=== PATIENT | female | born 1990 | race Caucasian/White ===

== ENCOUNTER 2018-12-16 16:07 | Inpatient (IN) | payer SELFPAY ==
[2018-12-16] MEDS ORDERED: SODIUM CHLORIDE 0.9% 1000ML 1,000 ML IVS ONE ×4 (16:36→21:32)
[2018-12-16] MEDS ORDERED: SODIUM CHLORIDE 0.9% (FLUSH) 10 ML SYG IV PRN ×2 (16:36→21:34)
[2018-12-16] MEDS ORDERED: ONDANSETRON INJ 4 MG/2 ML VIAL IV ONE (17:23)
[2018-12-16] MEDS ORDERED: POTASSIUM CHLORIDE 20mEq 10ML VIAL IVPB ONE (17:39)
[2018-12-16] MEDS ORDERED: KCL 20MEQ/WATER FOR INJ 100ML 20 MEQ in PREMIX BAG 1 BAG IVPB ONE (17:53)
[2018-12-16] MEDS ORDERED: KCL 20MEQ/WATER FOR INJ 100ML 100 ML IVPB ONE (17:55)
--- NOTE | 2018-12-16 17:57 | CT ---
EXAM DESCRIPTION: Abdomen/Pelvis w/Contrast CLINICAL HISTORY: 28 years Female, DIFFUSE ABD TENDERNESS COMPARISON: None. TECHNIQUE: Transaxial images were obtained with intravenous contrast medium without oral contrast media. Sagittal and coronal reconstruction was performed.This exam was performed according to our departmental dose-optimization program, which includes automated exposure control, adjustment of the mA and/or kV according to patient size and/or use of iterative reconstruction technique. FINDINGS: The lung bases are clear. The liver and spleen are unremarkable. No biliary ductal dilatation is observed. The gallbladder is normal in appearance. No adrenal masses are detected. The pancreas is normal in appearance. Imaging of the kidneys reveals no evidence of hydronephrosis mass cyst or calcification. The appendix is identified and is normal in appearance. No free fluid is observed. No inguinal region abnormality is seen. The uterus and adnexa are unremarkable. No bone abnormality is seen. IMPRESSION: Normal computerized axial tomography of the abdomen and pelvis. Electronically signed by: Marlo Adorno MD 12/16/2018 5:56 PM CDT
--- NOTE | 2018-12-16 18:24 | ED.PDOC ---
History of Present Illness - General Chief Complaint: Abdominal Pain Stated Complaint: abdominal pain,vomiting Time Seen by Provider: 12/16/18 16:28 Information Source: patient, family Exam Limitations: no limitations - History of Present Illness Initial Comments: PT PRESENTS TO THE ED WITH COMPLAINT OF NAUSEA, VOMITING, AND ABDOMINAL PAIN FOR THE PAST 2 WEEKS. PT STATES SHE HAS ONLY BEEN ABLE TO TOLERATE SMALL AMMOUNTS OF LIQUIDS. PT STATES THAT HER ABDOMINAL PAIN IS INTERMITTENT AND DIFFUSE. PT REPORTS HISTORY OF HEAVY ETOH USE BUT STATES SHE HAS NOT BEEN ABLE TO DRINK ALCOHOL FOR THE PAST 2 WEEKS DUE TO VOMITING. Abdominal Pain Onset Location: generalized abdomen Quality: intermittent Improving Factors: nothing Worsening Factors: nothing Associated Symptoms: nausea/vomiting Review of Systems - Review of Systems Constitutional: Denies: chills, fever EENTM: Denies: nose congestion, throat pain Respiratory: Denies: cough, short of breath Cardiology: Denies: chest pain, palpitations Gastrointestinal/Abdominal: States: abdominal pain, nausea, vomiting Genitourinary: Denies: dysuria, frequency Musculoskeletal: Denies: joint swelling, muscle pain Skin: Denies: dryness, lesions Neurological: Denies: headache, numbness Endocrine: States: no symptoms reported Hematologic/Lymphatic: States: no symptoms reported Past Medical History (General) - Patient Medical History Hx Stroke: No Hx Congestive Heart Failure: No Hx Diabetes: No Surgical History: no surgical history - Vaccination History Hx Influenza Vaccination: No - Social History Hx Tobacco Use: Yes Hx Alcohol Use: Yes - Female History Patient is a Female of Child Bearing Age (10 -59 yrs old): Yes Family Medical History - Family History Mother Family History: Unknown Living Status: Unknown Physical Exam - Physical Exam General Appearance: Alert, No apparent distress, Well Developed, Well Groomed, Other - DRY MUCOUS MEMBRANES Eyes, Ears, Nose, Throat Exam: PERRL/EOMI Neck: full range of motion, supple Respiratory: lungs clear, normal breath sounds, no respiratory distress Cardiovascular/Chest: no murmur, tachycardia Gastrointestinal/Abdominal: soft, tenderness - DIFFUSE Extremity: non-tender, normal inspection, no pedal edema Neurologic: alert, normal mood/affect, oriented x 3 Skin Exam: normal color, warm/dry Progress - Progress Progress: 12/16/18 18:26 PT REPORTS SIGNIFICANT IMPROVEMENT IN SYMPTOMS AFTER ZOFRAN AND FLUIDS. HR NOW 93 WITH SBP OF 114. LABS AND DIAGNOSTICS DISCUSSED. - Results/Orders Results/Orders: Laboratory Tests 12/16/18 12/16/18 12/16/18 16:40 16:40 16:40 WBC 17.2 H RBC 4.10 L Hgb 16.5 H Hct 45.8 MCV 111.8 H MCH 40.3 H MCHC 36.1 RDW 14.5 Plt Count 330 MPV 8.1 Absolute Neuts (auto) 14.00 H Absolute Lymphs (auto) 1.50 Absolute Monos (auto) 1.70 H Absolute Eos (auto) 0.10 Absolute Basos (auto) 0.00 Neutrophils % 81.2 H Lymphocytes % 8.5 L Monocytes % 9.7 H Eosinophils % 0.3 L Basophils % 0.3 Normal RBC Morphology Stain quality accept Sodium 130 L Potassium 2.8 L Chloride 87 L Carbon Dioxide 20 L Anion Gap 25.8 H BUN 22 H Creatinine 0.77 BUN/Creatinine Ratio 28.6 H Random Glucose 113 H Serum Osmolality 264.9 L Calcium 10.9 H Total Bilirubin 3.3 H* Direct Bilirubin 0.8 H Indirect Bilirubin 2.5 H AST 60 H ALT 77 H Alkaline Phosphatase 87 Serum Total Protein 9.1 H Albumin 4.8 Amylase 87 Lipase 70 H Serum HCG, Qual Ethyl Alcohol < 5.40 12/16/18 16:40 WBC RBC Hgb Hct MCV MCH MCHC RDW Plt Count MPV Absolute Neuts (auto) Absolute Lymphs (auto) Absolute Monos (auto) Absolute Eos (auto) Absolute Basos (auto) Neutrophils % Lymphocytes % Monocytes % Eosinophils % Basophils % Normal RBC Morphology Sodium Potassium Chloride Carbon Dioxide Anion Gap BUN Creatinine BUN/Creatinine Ratio Random Glucose Serum Osmolality Calcium Total Bilirubin Direct Bilirubin Indirect Bilirubin AST ALT Alkaline Phosphatase Serum Total Protein Albumin Amylase Lipase Serum HCG, Qual Negative Ethyl Alcohol - EKG/XRAY/CT EKG: Sinus, Tachy - @118, NL INTERVALS, NL AXIS, GOOD R WAVE PROGRESSION, no ST T wave changes - NO OLD EKG FOR COMPARISON Departure - Departure Clinical Impression: Dehydration, Hypokalemia, Hyponatremia, History of alcoholism Nausea and vomiting Qualifiers: Vomiting type: unspecified Vomiting Intractability: non-intractable Qualified Code(s): R11.2 - Nausea with vomiting, unspecified Abdominal pain Qualifiers: Abdominal location: generalized Qualified Code(s): R10.84 - Generalized abdominal pain Time of Disposition: 18:28 Disposition: Admit Patient Condition: Fair Departure Forms: ED Discharge - Pt. Copy, Patient Portal Self Enrollment Home Medications: Ambulatory Orders NK 12/16/18
--- NOTE | 2018-12-16 21:12 | HP ---
SUPERVISING PHYSICIAN: Fany Luque MD CHIEF COMPLAINT: Abdominal pain with nausea and vomiting. HISTORY OF PRESENT ILLNESS: This is a 28-year-old female patient who presented to the Emergency Room due to two weeks of intermittent diffuse abdominal pain. She is an admitted heavy alcohol user and she quit drinking alcoholic beverages about two weeks ago and since then, she has had severe nausea and vomiting with dry heaves. She also has had an increase in her gastroesophageal reflux disease symptoms. In the Emergency Room, she was given some Zofran as well as several liters of fluids. Her initial vital signs showed temperature 98, heart rate 146, blood pressure 107/85, respiratory rate 16, O2 saturation 99. After her fluids, her heart rate came down to 98. Laboratory was drawn and showed WBCs 17,200, hemoglobin 16.5, hematocrit 45.8. She has a left shift on her differential. Sodium 130, potassium 2.8, chloride 87, carbon dioxide 20, BUN 22, creatinine 0.77. Glucose 113, serum osmolality 264.9, calcium 10.9, total bilirubin 3.3, direct bilirubin 0.8, indirect bilirubin 2.5, AST 60, ALT 77, amylase 87, lipase 70. Serum HCG was negative. Urinalysis was unremarkable. Urine drug screen was negative for ethyl alcohol with less than 5.4. CT of her abdomen was done and shows normal computerized axial tomography of the abdomen and pelvis. In addition to the fluid in the Emergency Room, she was given some potassium supplementation and I was called for hospital admission. PAST MEDICAL HISTORY: 1. Chronic insomnia. 2. Gastroesophageal reflux disease. PAST SURGICAL HISTORY: 1. ORIF of the arm when she was a child after a break. OUTPATIENT MEDICATIONS: 1. Benadryl for sleep. ALLERGIES: NO KNOWN DRUG ALLERGIES. SOCIAL HISTORY: She lives at home with her significant other. She has one child. She smokes approximately 7 to 8 cigarettes per day. She drinks one to two bottles of vodka weekly. She denies any illicit drug use. REVIEW OF SYSTEMS: GENERAL: Positive for chills. Negative for fever or weight changes. HEENT: Negative for sinus symptoms, ear pain, vision changes or sore throat. RESPIRATORY: Negative for wheezing, coughing or shortness of breath. CARDIAC: Negative for chest pain, palpitations or tachycardia. GASTROINTESTINAL: As per history of present illness. GENITOURINARY: Negative for hematuria, dysuria or polyuria. MUSCULOSKELETAL: Negative for arthralgias, myalgias. SKIN: Negative for lesions or rashes. NEUROLOGIC: Negative for headache, weakness or seizures. PHYSICAL EXAMINATION: VITAL SIGNS: Temperature 97.8. Heart rate 90. Blood pressure 105/70. Respiratory rate 18. O2 100% on room air. GENERAL: This is a 28-year-old female patient who looks to be moderately ill lying in her hospital bed. HEENT: Normocephalic, atraumatic. Pupils are equal and reactive. Oropharynx is clear. NECK: Supple without mass. RESPIRATORY: Essentially clear to auscultation bilaterally. CHEST: There is equal rise and fall of the chest with inspiration and expiration. CARDIOVASCULAR: Regular rate and rhythm. At times, she is tachycardic. GASTROINTESTINAL: Abdomen is soft. She has diffuse tenderness throughout. No rebound tenderness or guarding. Bowel sounds are positive. EXTREMITIES: No cyanosis, clubbing or edema. NEUROLOGIC: Awake, alert and oriented times three. SKIN: Warm and dry. No rashes or lesions noted. LABORATORY: Labs and films are as per history of present illness. IMPRESSION: 1. Severe dehydration with nausea and vomiting secondary to ETOH withdrawal. 2. Severe electrolyte imbalance secondary to #1. 3. Elevated liver function tests secondary to alcohol abuse. 4. Gastroesophageal reflux disease. 5. ETOH abuse. 6. Chronic insomnia. PLAN: I have admitted the patient to the hospital. She will be aggressively rehydrated with fluids. I have given her Phenergan and Zofran as antiemetics for nausea. I will recheck her labs in the morning. I have also given her a proton pump inhibitor for ulcer prophylaxis. In addition to that, I have given her Maalox as needed as well as Zantac. She will be NPO except for medications overnight in case there is some testing that needs to be done in the morning. I have also consulted Director Of Officiating for faye care as well as possible help with her ETOH addiction. I ordered some Ativan both for sleep and in case there are some delirium tremens, although that is most likely remote as she has not had an alcoholic beverage in two weeks. I ordered aggressive pulmonary hygiene. We will continue to monitor the patient closely and follow as needed. #[id number] [facility]
[2018-12-16] MEDS ORDERED: ONDANSETRON INJ 4 MG/2 ML VIAL IV PRN (21:33)
[2018-12-16] MEDS ORDERED: PROMETHAZINE HCL INJ 25 MG in SODIUM CHLORIDE 0.9% 50ML 50 ML IVPB PRN (21:33)
[2018-12-16] MEDS ORDERED: ACETAMINOPHEN 325 MG TAB PO PRN (21:34)
[2018-12-16] MEDS ORDERED: IV SET AND CAP CHANGE INJ INJ SCH (22:00)
[2018-12-16] MEDS: KCL 20MEQ/D5NS 1,000 ML IVS PRN (22:15)
[2018-12-16] MEDS ORDERED: SODIUM CHLORIDE 0.9% 50ML 50 ML ONE ×2 (22:17→23:02)
[2018-12-16] MEDS ORDERED: PROMETHAZINE HCL INJ 25 MG/ML VIAL ONE (22:17)
[2018-12-16] MEDS ORDERED: raNITIdine HCL INJ 25 MG/ML VIAL ONE (23:02)
[2018-12-16] MEDS: ALUMINUM & MAGNESIUM HYDROXIDE 30 ML UD PO PRN (23:03)
[2018-12-16] MEDS: raNITIdine HCL INJ 50 MG in SODIUM CHLORIDE 0.9% 50ML 50 ML IVPB SCH (23:04)
[2018-12-17] MEDS ORDERED: SODIUM CHLORIDE 0.9% 50ML 50 ML ONE ×4 (05:06→19:25)
[2018-12-17] MEDS ORDERED: raNITIdine HCL INJ 25 MG/ML VIAL ONE ×4 (05:06→19:25)
[2018-12-17] MEDS: raNITIdine HCL INJ 50 MG in SODIUM CHLORIDE 0.9% 50ML 50 ML IVPB SCH ×3 (06:15→22:34)
[2018-12-17] MEDS: KCL 20MEQ/D5NS 1,000 ML IVS PRN ×3 (07:54→23:59)
[2018-12-17] MEDS ORDERED: POTASSIUM CHLORIDE 20 MEQ TAB PO ONE (09:17)
[2018-12-17] MEDS ORDERED: POTASSIUM CHLORIDE 10 MEQ TAB PO ONE (10:20)
[2018-12-17] MEDS: SODIUM CHLORIDE 0.9% (FLUSH) 10 ML SYG IV SCH ×2 (13:16→20:23)
[2018-12-17] MEDS ORDERED: ALUM & MAG HYDROX-SIMETHICONE 30 ML, LIDOCAINE VISCOUS 2% 15 ML PO ONE ×2 (13:19)
[2018-12-17] MEDS ORDERED: LIDOCAINE HCL 2% (MOUTH-THROAT) 15 ML UD ONE (13:46)
[2018-12-17] MEDS: ALUMINUM & MAGNESIUM HYDROXIDE 30 ML UD PO PRN (13:55)
[2018-12-17] MEDS: SUCRALFATE 1 GM TAB PO SCH ×2 (16:16→20:23)
[2018-12-17] MEDS: ENOXAPARIN SODIUM 40 MG/0.4 ML SYG SUBCU SCH (20:23)
--- NOTE | 2018-12-17 22:40 | PN ---
DATE: 12/17/18 SUPERVISING PHYSICIAN: Tomas Luque M.D. SUBJECTIVE: The patient has had a little bit of heartburn which resolved with a GI cocktail. I did discuss with her again at length her need to stop drinking. She has had a little bit of nausea with her medication this morning, otherwise she has started to tolerate oral intake. OBJECTIVE: VITAL SIGNS: Temperature 98.3, pulse 94, blood pressure 103/70, respirations 16, satting 100% on room air. GENERAL: The patient is resting comfortably. Appears to be in no acute distress. CHEST: Lungs are clear to auscultation. HEART: Regular rate and rhythm. ABDOMEN: Soft, non-tender. Positive bowel sounds. EXTREMITIES: Without any edema. NEUROLOGIC: She is alert and oriented times three. LABORATORY: White count now has normalized to 5,900, hemoglobin 11.6, hematocrit 32.1 with an MCV of 112 and MCH of 40.4, platelet count 181,000. Differential shows to be without a left shift today. Chemistries show sodium 137, potassium is still low at 2.6, BUN 8, creatinine 0.52, magnesium 1.4, bilirubin went from 3.3 to 1.7. Liver functions all otherwise have normalized. RADIOLOGY: No radiographic studies since admission. ASSESSMENT: 1. Severe dehydration with nausea and vomiting secondary to ETOH withdrawal. 2. Severe electrolyte imbalance to include hypokalemia and hypomagnesemia secondary to #1. 3. Anemia with macrocytosis likely due to chronic alcoholism. 4. Elevated liver function tests now returned to baseline levels, likely exacerbated by underlying dehydration. 5. Gastroesophageal reflux disease complicated by chronic alcoholism. 6. Chronic alcohol abuse. 7. Chronic insomnia. PLAN: Will continue with hydration today. I have advanced her diet. I did give her a GI cocktail and started her on some Carafate for the GERD. She does remain on Zantac. I anticipate hopefully being able to discharge tomorrow. Until then will continue to monitor and treat as needed. #[id number] [facility]
[2018-12-18] MEDS: raNITIdine HCL INJ 50 MG in SODIUM CHLORIDE 0.9% 50ML 50 ML IVPB SCH ×3 (06:32→23:17)
[2018-12-18] MEDS: SUCRALFATE 1 GM TAB PO SCH ×4 (06:32→20:43)
[2018-12-18] MEDS: KCL 20MEQ/D5NS 1,000 ML IVS PRN (08:14)
[2018-12-18] MEDS: SODIUM CHLORIDE 0.9% (FLUSH) 10 ML SYG IV SCH ×2 (08:14→20:44)
[2018-12-18] MEDS ORDERED: MAGNESIUM SULFATE PREMIX 4GM 4 GM in PREMIX BAG 1 BAG IVPB ONE (08:23)
[2018-12-18] MEDS ORDERED: SODIUM CHLORIDE 0.9% (FLUSH) 10 ML SYG IV ONE (08:24)
[2018-12-18] MEDS ORDERED: MAGNESIUM SULFATE PREMIX 2GM 50 ML IVPB ONE (08:33)
[2018-12-18] MEDS ORDERED: MAGNESIUM SULFATE PREMIX 4GM 50 ML IVPB ONE (08:37)
--- NOTE | 2018-12-18 13:47 | PN ---
SUPERVISING PHYSICIAN: Fany Luque MD DATE: 12/18/18 SUBJECTIVE: The patient continues to have a little bit of nausea. She is not complaining of any additional heartburn. She has been tolerating a diet. I was hoping to send her home today and discussed with her the fact that her potassium and magnesium continue to be low and require replacement. We will work to normalize those prior to discharging. The patient is in agreement with plan of care. OBJECTIVE: VITAL SIGNS: She remains afebrile with temperature 98. Pulse 82. Blood pressure 98/64. Respirations 18. Oxygen saturation 98% on room air. Weight is stable at 57.9 kg. GENERAL: The patient is resting comfortably and appears to be in no acute distress. CHEST: Lungs are clear to auscultation. HEART: Regular rate and rhythm. ABDOMEN: Soft, nontender. Positive bowel sounds. EXTREMITIES: Without any edema. NEUROLOGIC: She is alert and oriented times three. LABORATORY: White count 4,200, hemoglobin 10.7, hematocrit 29.2 with macrocytosis on RBC indices with differential without a left shift. Platelet count 153,000. Chemistries show sodium 135, potassium up a little bit to 2.8, but magnesium is down to 1.1 despite replacement yesterday from 1.4 which 2 grams of magnesium parenterally. Carbon dioxide normal at 22. Anion gap remains normal. BUN less than 5, creatinine less than 0.4. ASSESSMENT: 1. Severe dehydration with nausea and vomiting secondary to ETOH withdrawal. 2. Severe electrolyte imbalance to include hypokalemia and hypomagnesemia secondary to #1, with levels being persistently low and requiring more aggressive management. 3. Anemia with macrocytosis likely due to chronic alcoholism. 4. Elevated liver function tests now returned to baseline levels, likely exacerbated by underlying dehydration. 5. Gastroesophageal reflux disease complicated by chronic alcoholism. 6. Chronic alcohol abuse. 7. Chronic insomnia. PLAN: Given that the patient is now more euvolemic, we will saline lock. We have advanced her diet to a regular diet. We will monitor if she tolerates that. Again, she has been given Carafate with each meal. She does remain on Zantac for GERD. I have replaced her magnesium this morning with 4 grams of parenteral magnesium with anticipation of checking magnesium levels this afternoon. Until we can normalize her magnesium, we will not be very aggressive with trying to normalize potassium. Once her magnesium is up, we will continue with potassium replacement as needed, but she is not able to tolerate large tablets, therefore, we will have to be more selective on medication administration. Until the patient can transition to outpatient management, we will continue to monitor and treat as needed. #[id number] [facility]
[2018-12-18] MEDS ORDERED: SODIUM CHLORIDE 0.9% 50ML 50 ML ONE ×2 (15:40→19:13)
[2018-12-18] MEDS ORDERED: raNITIdine HCL INJ 25 MG/ML VIAL ONE ×2 (15:40→19:13)
[2018-12-18] MEDS: POTASSIUM CHLORIDE ELIXIR 20 MEQ/15 ML UD PO ONE ×2 (19:15→19:16)
[2018-12-18] MEDS ORDERED: KCL 20MEQ/WATER FOR INJ 100ML 100 ML IVPB ONE (19:59)
[2018-12-18] MEDS ORDERED: SODIUM CHLORIDE 0.9% 250ML 250 ML IVS ONE (20:00)
[2018-12-18] MEDS ORDERED: KCL 20MEQ/WATER FOR INJ 100ML 20 MEQ in PREMIX BAG 1 BAG IVPB ONE (20:00)
[2018-12-18] MEDS: ENOXAPARIN SODIUM 40 MG/0.4 ML SYG SUBCU SCH (20:43)
[2018-12-19 02:08] VITALS: O2SAT 99
[2018-12-19] MEDS ORDERED: raNITIdine HCL INJ 25 MG/ML VIAL ONE (05:38)
[2018-12-19] MEDS ORDERED: SODIUM CHLORIDE 0.9% 50ML 50 ML ONE (05:38)
[2018-12-19] MEDS: SUCRALFATE 1 GM TAB PO SCH ×2 (06:31→10:45)
[2018-12-19] MEDS: raNITIdine HCL INJ 50 MG in SODIUM CHLORIDE 0.9% 50ML 50 ML IVPB SCH (06:31)
[2018-12-19] MEDS ORDERED: MAGNESIUM SULFATE PREMIX 2GM 2 GM in PREMIX BAG 1 BAG IVPB ONE (08:51)
[2018-12-19] MEDS ORDERED: MAGNESIUM SULFATE PREMIX 2GM 50 ML IVPB ONE (09:00)
[2018-12-19] MEDS: SODIUM CHLORIDE 0.9% (FLUSH) 10 ML SYG IV SCH (09:01)
[2018-12-19] MEDS ORDERED: KCL 20MEQ/WATER FOR INJ 100ML 20 MEQ in PREMIX BAG 1 BAG IVPB ONE (09:50)
[2018-12-19] MEDS ORDERED: KCL 20MEQ/WATER FOR INJ 100ML 100 ML IVPB ONE (10:15)
[2018-12-19] MEDS ORDERED: POTASSIUM CHLORIDE 20 MEQ TAB ONE (10:33)
[2018-12-19] MEDS ORDERED: SODIUM CHLORIDE 0.9% 500ML 500 ML ONE (10:34)
[2018-12-19] MEDS ORDERED: POTASSIUM CHLORIDE 20 MEQ TAB PO ONE (10:35)
[2018-12-19] MEDS ORDERED: SODIUM CHLORIDE 0.9% 500ML 500 ML IVS PRN (10:36)
[2018-12-19 11:08] VITALS: BP 109/65; TEMP 98.7
--- NOTE | 2019-01-07 08:20 | DS ---
SUPERVISING PHYSICIAN: Fany Luque MD ADMISSION DIAGNOSIS: 1. Severe dehydration with nausea and vomiting secondary to ETOH withdrawal. 2. Severe electrolyte imbalance secondary to #1. 3. Elevated liver function tests secondary to alcohol abuse. 4. Gastroesophageal reflux disease. 5. ETOH abuse. 6. Chronic insomnia. DISCHARGE DIAGNOSIS: 1. Severe dehydration with nausea and vomiting secondary to ETOH withdrawal, returning to baseline levels with fluids. 2. Severe electrolyte imbalance to include hypokalemia and hypomagnesemia secondary to #1, with levels returning to baseline levels with fluids and replacement. 3. Anemia with macrocytosis due to chronic alcoholism. 4. Elevated liver function tests, returning to baseline levels, likely exacerbated by #1 and underlying dehydration. 5. Gastroesophageal reflux disease complicated by chronic alcoholism. 6. Chronic alcohol abuse. 7. Chronic insomnia. REASON FOR HOSPITALIZATION: This is a 28-year-old female patient who presented to the Emergency Room due to two weeks of intermittent diffuse abdominal pain. She is an admitted heavy alcohol user and she quit drinking alcoholic beverages about two weeks ago and since then, she has had severe nausea and vomiting with dry heaves. She also has had an increase in her gastroesophageal reflux disease symptoms. In the Emergency Room, she was given some Zofran as well as several liters of fluids. Her initial vital signs showed temperature 98, heart rate 146, blood pressure 107/85, respiratory rate 16, O2 saturation 99. After her fluids, her heart rate came down to 98. Laboratory was drawn and showed WBCs 17,200, hemoglobin 16.5, hematocrit 45.8. She has a left shift on her differential. Sodium 130, potassium 2.8, chloride 87, carbon dioxide 20, BUN 22, creatinine 0.77. Glucose 113, serum osmolality 264.9, calcium 10.9, total bilirubin 3.3, direct bilirubin 0.8, indirect bilirubin 2.5, AST 60, ALT 77, amylase 87, lipase 70. Serum HCG was negative. Urinalysis was unremarkable. Urine drug screen was negative for ethyl alcohol with less than 5.4. CT of her abdomen was done and shows normal computerized axial tomography of the abdomen and pelvis. In addition to the fluid in the Emergency Room, she was given some potassium supplementation and I was called for hospital admission. LABORATORY: White count on admission was 17,200. At discharge, 4,200. Hemoglobin initially was 15.5 and 10.7 on discharge . Hematocrit on admission was 45.8 and at discharge 29.2. Differential had a slight left shift on admission, but resolved prior to discharge after fluids. Chemistries showed serum HCG negative. Sodium on admission was 130, potassium 2.8, chloride 87, carbon dioxide 20, BUN 22, creatinine 0.77, glucose 113, calcium 10.9. Initial bilirubin was 3.3 with 2.5 indirect and 0.8 direct. AST and ALT were both elevated, 68 AST, 77 ALT. Lipase slightly elevated at 70. With fluids and treatment, prior to discharge electrolytes were showing normal sodium, potassium was up to 3.5, total bilirubin normalized at 1.0 as well as liver functions were back to baseline levels. Creatinine was less than 0.4. Urinalysis showed just a trace of blood, small amount of bilirubin, otherwise within normal limits. Initial toxicology screen on admission showed negative for all substances tested with alcohol level less than 5.4. RADIOLOGY: Abdominopelvic CT with contrast per radiologic interpretation showed computerized axial tomography of the abdomen and pelvis. EKG in the Emergency Room showed a sinus tachycardia without any ST or T-wave changes to indicate ischemia or acute injury pattern. HOSPITAL COURSE: Ms. Alvarado was admitted for acute alcohol withdrawal and dehydration. She was started on treatment with IV fluids with potassium replacement, magnesium replacement and antiemetics as needed. She had no other signs or symptoms other than dehydration and prior to discharge was showing no signs of acute withdrawal from alcohol. She was no longer having any nausea or vomiting. She was felt clinically stable enough to continue with outpatient measures for treatment. PLAN: Ms. Alvarado was discharged to followup in the outpatient setting with her primary care provider, Tyra Aguilera, Nurse Practitioner. Diet was regular diet as tolerated. Activity to increase as tolerated. Medications on discharge included Nexium 24 hours 20 mg daily, no refills. All other medications prior to hospitalization were continued as is. DISPOSITION: The patient was discharged home. CONDITION ON DISCHARGE: The patient was stable and improved. #[id number] [facility]
== END 2018-12-19 15:45 | disposition home or self-care (01) | DRG 641 ==
LOC: ER 16:07 → MS 21:11
PROVIDERS: ADMIT Nurse Practitioner Acute Care; ATTEND Nurse Practitioner Acute Care
DX: E86.0 Dehydration (principal); F10.239 Alcohol dependence with withdrawal, unspecified; E87.1 Hypo-osmolality and hyponatremia; E87.6 Hypokalemia; G47.00 Insomnia, unspecified; K21.9 Gastro-esophageal reflux disease without esophagitis; F17.210 Nicotine dependence, cigarettes, uncomplicated; R74.8 Abnormal levels of other serum enzymes; E83.42 Hypomagnesemia; D53.9 Nutritional anemia, unspecified

== ENCOUNTER 2018-12-28 01:24 | Emergency (ER) | payer SELFPAY ==
[2018-12-28] MEDS ORDERED: FOLIC ACID INJ 5 MG/ML VIAL IV ONE (02:13)
[2018-12-28] MEDS ORDERED: MAGNESIUM SULFATE PREMIX 4GM 4 GM in PREMIX BAG 1 BAG IVPB ONE (02:13)
[2018-12-28] MEDS ORDERED: POTASSIUM CHLORIDE ELIXIR 20 MEQ/15 ML UD PO ONE (02:13)
[2018-12-28] MEDS ORDERED: THIAMINE HCL INJ 100 MG/ML VIAL IV ONE (02:14)
[2018-12-28] MEDS ORDERED: CYANOCOBALAMIN INJ 1,000 MCG/ML INJ SUBCU ONE (02:14)
[2018-12-28] MEDS ORDERED: MAGNESIUM SULFATE PREMIX 4GM 50 ML IVPB ONE (02:18)
--- NOTE | 2018-12-28 02:56 | ED.PDOC ---
History of Present Illness - General Chief Complaint: General Stated Complaint: fingers,face,feet numb and painful Time Seen by Provider: 12/28/18 01:27 Source: patient Exam Limitations: no limitations - History of Present Illness Initial Comments: the patient is a 28-year-old female presents to the emergency room secondary to sensation of mild numbness and tingling to her distal extremities as well as around her mouth. No syncope. Mild dizziness. She was recently hospitalized for severe electrolyte abnormalities. She does appear to have a megaloblastic anemia. She has had significant alcohol intake in the recent past. She is not currently intoxicated. Mild nausea but no vomiting. Timing/Duration: other - 4 days according to her Severity: mild Improving Factors: nothing Worsening Factors: nothing Associated Symptoms: malaise, nausea/vomiting Allergies/Adverse Reactions: Allergies NO KNOWN ALLERGY Allergy (Verified 12/16/18 21:33) Home Medications: Ambulatory Orders Esomeprazole Magnesium [Nexium 24Hr] 20 mg PO DAILY #30 cap 12/19/18 Folic Acid 1 mg PO DAILY #60 tab 12/28/18 Magnesium Oxide 400 mg PO DAILY #20 cap 12/28/18 Pantoprazole Sodium 40 mg PO ACBK 12/28/18 Potassium Chloride [Potassium Chloride ER] 10 meq PO DAILY #30 tab 12/28/18 Thiamine HCl [Thiamine] 50 mg PO DAILY #60 cap 12/28/18 diphenhydrAMINE HCL [Benadryl] 25 mg PO BEDTIME 12/28/18 Review of Systems - Review of Systems Constitutional: States: malaise EENTM: States: no symptoms reported Respiratory: States: no symptoms reported Cardiology: States: no symptoms reported Gastrointestinal/Abdominal: States: nausea Genitourinary: States: no symptoms reported Musculoskeletal: States: no symptoms reported Skin: States: no symptoms reported Neurological: States: see HPI Endocrine: States: no symptoms reported All other Systems: No Change from Baseline Past Medical History (General) - Patient Medical History Hx Seizures: No Hx Stroke: No Hx Dementia: No Hx Asthma: No Hx of COPD: No Hx Cardiac Disorders: No Hx Congestive Heart Failure: No Hx Pacemaker: No Hx Hypertension: No Hx Thyroid Disease: No Hx Diabetes: No Hx Gastroesophageal Reflux: No Hx Renal Disease: No Hx Cancer: No Hx of HIV: No Hx Hepatitis C: No Hx MRSA: No Surgical History: no surgical history - Vaccination History Hx Tetanus, Diphtheria Vaccination: - unknown Hx Influenza Vaccination: No - Social History Hx Tobacco Use: Yes Hx Alcohol Use: Yes - quit 1 month ago Hx Substance Use: No Hx Physical Abuse: No Hx Emotional Abuse: No - Female History Hx Last Menstrual Period: 12/13/18 Family Medical History - Family History Mother Family History: Unknown Living Status: Still Living Father Living Status: Still Living Hx Family Diabetes: Yes Physical Exam - Physical Exam General Appearance: Alert, No apparent distress Eye Exam: bilateral normal Ears, Nose, Throat: hearing grossly normal, normal ENT inspection Neck: full range of motion, supple Respiratory: lungs clear, normal breath sounds, no respiratory distress, no accessory muscle use Cardiovascular/Chest: normal peripheral pulses, regular rate, rhythm, no edema Peripheral Pulses: radial,right: 2+, radial,left: 2+ Gastrointestinal/Abdominal: non tender, soft Rectal Exam: deferred Back Exam: no CVA tenderness, no vertebral tenderness Extremity: non-tender, normal inspection, no pedal edema, normal capillary refill 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 This is likely multifactorial. The neuropathy may be coming from longer-term alcohol intake but also likely due to folate deficiency as well as hypokalemia and hypomagnesemia. She also may have a mild thiamine deficiency. The patient is going to be written for supplements of these. She obviously needs to continue to avoid alcohol. She needs to keep well-hydrated. She does not appear to be B12 deficient at this time. She needs to follow up with her primary care doctor later this coming week. Her macrocytic anemia does appear to be improving. - Results/Orders Results/Orders: Laboratory Tests 12/28/18 12/28/18 12/28/18 01:41 01:41 01:41 WBC 6.8 RBC 3.19 L Hgb 12.4 Hct 35.3 L MCV 111.0 H MCH 39.0 H MCHC 35.2 RDW 13.8 Plt Count 257 MPV 6.5 L Absolute Neuts (auto) 4.70 Absolute Lymphs (auto) 1.50 Absolute Monos (auto) 0.50 Absolute Eos (auto) 0.10 Absolute Basos (auto) 0.00 Neutrophils % 69.3 Lymphocytes % 22.4 Monocytes % 6.9 Eosinophils % 0.7 L Basophils % 0.7 Sodium 142 Potassium 3.3 L Chloride 106 Carbon Dioxide 25 Anion Gap 14.3 BUN < 5 L Creatinine 0.53 L BUN/Creatinine Ratio 9.4 L Random Glucose 94 Serum Osmolality 279.8 Calcium 8.7 Magnesium 1.5 L Total Bilirubin 0.9 AST 38 ALT 39 Alkaline Phosphatase 73 Creatine Kinase 30 CK-MB (CK-2) 0.4 CK-MB (CK-2) % Not Reportable Troponin I < 0.02 Serum Total Protein 6.9 Albumin 3.7 Globulin 3.2 Albumin/Globulin Ratio 1.2 Vitamin B12 Serum Folate TSH 5.80 H Serum HCG, Qual Negative 12/28/18 01:42 WBC RBC Hgb Hct MCV MCH MCHC RDW Plt Count MPV Absolute Neuts (auto) Absolute Lymphs (auto) Absolute Monos (auto) Absolute Eos (auto) Absolute Basos (auto) Neutrophils % Lymphocytes % Monocytes % Eosinophils % Basophils % Sodium Potassium Chloride Carbon Dioxide Anion Gap BUN Creatinine BUN/Creatinine Ratio Random Glucose Serum Osmolality Calcium Magnesium Total Bilirubin AST ALT Alkaline Phosphatase Creatine Kinase CK-MB (CK-2) CK-MB (CK-2) % Troponin I Serum Total Protein Albumin Globulin Albumin/Globulin Ratio Vitamin B12 555 Serum Folate 1.52 L TSH Serum HCG, Qual Departure - Departure Clinical Impression: Macrocytic anemia, Folate deficiency, Hypokalemia, Hypomagnesemia, Neuropathy Disposition: Discharge to Home or Self Care Condition: Fair Departure Forms: ED Discharge - Pt. Copy, Patient Portal Self Enrollment Diet: regular diet Activity: increase activity as tolerated Referrals: Tyra Aguilera NP [Primary Care Provider] - 1-5 Days Prescriptions: Folic Acid 1 mg PO DAILY #60 tab Magnesium Oxide 400 mg PO DAILY #20 cap Potassium Chloride [Potassium Chloride ER] 10 meq PO DAILY #30 tab Thiamine HCl [Thiamine] 50 mg PO DAILY #60 cap Home Medications: Ambulatory Orders Esomeprazole Magnesium [Nexium 24Hr] 20 mg PO DAILY #30 cap 12/19/18 Folic Acid 1 mg PO DAILY #60 tab 12/28/18 Magnesium Oxide 400 mg PO DAILY #20 cap 12/28/18 Pantoprazole Sodium 40 mg PO ACBK 12/28/18 Potassium Chloride [Potassium Chloride ER] 10 meq PO DAILY #30 tab 12/28/18 Thiamine HCl [Thiamine] 50 mg PO DAILY #60 cap 12/28/18 diphenhydrAMINE HCL [Benadryl] 25 mg PO BEDTIME 12/28/18 Additional Instructions: the patient is a 28-year-old female presenting to emergency room with ess entially symptoms of neuropathy. This is likely multifactorial. The neuropathy may be coming from longer-term alcohol intake but also likely due to folate deficiency as well as hypokalemia and hypomagnesemia. She also may have a mild thiamine deficiency. The patient is going to be written for supplements of these. She obviously needs to continue to avoid alcohol. She needs to keep well-hydrated. She does not appear to be B12 deficient at this time. She needs to follow up with her primary care doctor later this coming week. Her macrocytic anemia does appear to be improving.
[2018-12-28 02:57] VITALS: O2SAT 98
[2018-12-28 03:41] VITALS: BP 123/74; TEMP 97.6
== END 2018-12-28 03:41 | disposition home or self-care (01) ==
LOC: ER 01:24
DX: D53.9 Nutritional anemia, unspecified (principal); E53.8 Deficiency of other specified B group vitamins; E83.42 Hypomagnesemia; G62.9 Polyneuropathy, unspecified; E87.6 Hypokalemia; R11.0 Nausea; Z87.891 Personal history of nicotine dependence
CPT/HCPCS: 36415; 80053; 82550; 82553; 82607; 82746; 83735; 84443; 84484; 84703; 85025; 93005; J3411; J3420; J3475